=== PATIENT | female | born 1965 | race Caucasian/White ===

== ENCOUNTER 2017-11-05 14:15 | Emergency (ER) | payer OTHER ==
[2017-11-05 14:34] VITALS: BP 149/106
--- NOTE | 2017-11-05 14:40 | EDPHY ---
H & P Stated Complaint: Pt. states for 3-4weeks uncontrolled BP,yesterday and today blurry vision Time Seen by Provider: 11/05/17 14:27 HPI/ROS: CHIEF COMPLAINT: High blood pressure HISTORY OF PRESENT ILLNESS: The patient is a 52-year-old female with a history of high blood pressure who noticed today at work that her blood pressure was 170 /90. She presented to the urgent care where her blood pressure was 162/99. They sent her here where her blood pressure is 149/80. She is currently asymptomatic. She states that she takes lisinopril and hydrochlorothiazide and has for about 4 years. She has tolerated these medications well but they have not completely controlled her blood pressure which is typically around 130/80. Her Dr Sheron in [place] added metoprolol about month ago but it was giving her headaches. 2 days ago he discontinue the metoprolol and added hydralazine. This has been making her feel intermittently dizzy. No chest pain or shortness of breath. To me she denies any blurred vision or paresthesias or weakness. No syncope. No GI symptoms. She actually felt like it was making her blood pressure increase. She did not take her dose today and actually feels asymptomatic now. Severity: Mild Modifying factors: Symptoms improved as medication wore off REVIEW OF SYSTEMS: Constitutional: denies: chills, fever, recent illness, recent injury EENTM: denies: blurred vision, double vision, nose congestion Respiratory: denies: cough, shortness of breath Cardiac: denies: chest pain, irregular heart rate, lightheadedness, palpitations Gastrointestinal/Abdominal: denies: abdominal pain, diarrhea, nausea, vomiting, blood streaked stools Genitourinary: denies: dysuria, frequency, hematuria, pain Musculoskeletal: denies: joint pain, muscle pain Skin: denies: lesions, rash, jaundice, bruising Neurological: denies: headache, numbness, paresthesia, tingling, dizziness, weakness Hematologic/Lymphatic: denies: blood clots, easy bleeding, easy bruising Immunologic/allergic: denies: HIV/AIDS, transplant 10 systems reviewed and negative except as noted EXAM: GENERAL: Well-appearing, well-nourished and in no acute distress. HEAD: Atraumatic, normocephalic. EYES: Pupils equal round and reactive to light, extraocular movements intact, sclera anicteric, conjunctiva are normal. ENT: TMs normal, nares patent, oropharynx clear without exudates. Moist mucous membranes. NECK: Normal range of motion, supple without lymphadenopathy or JVD. LUNGS: Breath sounds clear to auscultation bilaterally and equal. No wheezes rales or rhonchi. HEART: Regular rate and rhythm without murmurs, rubs or gallops. ABDOMEN: Soft, nontender, normoactive bowel sounds. No guarding, no rebound. No masses appreciated. BACK: No CVA tenderness, no spinal tenderness, step-offs or deformities EXTREMITIES: Normal range of motion, no pitting or edema. No clubbing or cyanosis. NEUROLOGICAL: Cranial nerves II through XII grossly intact. Normal speech, normal gait. 5/5 strength, normal movement in all extremities, normal sensation , normal reflexes PSYCH: Normal mood, normal affect. SKIN: Warm, dry, normal turgor, no visible rashes or lesions. Source: Patient Exam Limitations: No limitations - Personal History LMP (Females 10-55): Post Menopausal - Medical/Surgical History Hx Asthma: No Hx Chronic Respiratory Disease: No Hx Diabetes: No Hx Cardiac Disease: No Hx Renal Disease: No Hx Cirrhosis: No Hx Alcoholism: No Hx HIV/AIDS: No Other PMH: Med hx-HTN - Family History Significant Family History: No pertinent family hx - Social History Smoking Status: Never smoked Alcohol Use: Sober Drug Use: None Constitutional: Initial Vital Signs Temperature (C) 37.1 C 11/05/17 14:23 Heart Rate 99 11/05/17 14:23 Respiratory Rate 16 11/05/17 14:23 Blood Pressure 149/106 H 11/05/17 14:23 O2 Sat (%) 94 11/05/17 14:23 O2 Delivery Mode Room Air Allergies/Adverse Reactions: No Known Allergies Allergy (Verified 11/05/17 14:22) Home Medications: Medication Instructions Recorded Hydralazine HCl 11/05/17 Hydrochlorothiazide 11/05/17 Lisinopril [Zestril 40 mg (*)] 11/05/17 Medical Decision Making ED Course/Re-evaluation: The patient is asymptomatic. She has high blood pressure. It is resolving spontaneously. She has had side effects with metoprolol and hydralazine. We discussed blood pressure management in the emergency department. I prefer not to make any new recommendations however we did discuss increasing her lisinopril and hydrochlorothiazide by half a tablet each day. She will keep a journal of her blood pressures and follow up with her regular doctor for further adjustment. I do not feel that she has hypertensive urgency or emergency. She does not have any neurologic deficits. She does not have any chest pain or shortness of breath. She does not have a headache. She understands and agrees with this plan. She feels reassured. Differential Diagnosis: Partial list of the Differential diagnosis considered include but were not limited to; hypertension, anxiety, medication effect and although unlikely based on the history and physical exam, I also considered CVA, hemorrhage, infection, acute coronary disease, PE, arrhythmia. I discussed these differential diagnoses and the plan with the patient as well as the usual and expected course. The patient understands that the diagnosis is provisional and that in medicine we are not always correct and that further workup is often warranted. Usual and customary warnings were given. All of the patient's questions were answered. The patient was instructed to return to the emergency department should the symptoms at all worsen or return, otherwise to followup with the physician as we discussed. Departure - Departure Disposition: Home, Routine, Self-Care Clinical Impression: Hypertension Qualifiers: Hypertension type: unspecified Qualified Code(s): I10 - Essential (primary) hypertension Condition: Fair Instructions: Lisinopril (By mouth), Hydrochlorothiazide (By mouth), Hypertension (ED) Additional Instructions: Discontinue the hydralazine. Increase her lisinopril dose to 1.5 tablets per day and your hydrochlorothiazide to 1.5 tablets per day. Keep a journal of your blood pressures and follow up with her doctor in a week or 2 to re- evaluate. Referrals: Sheron Barraza [Other] - As per Instructions
== END 2017-11-05 14:50 | disposition home or self-care (01) ==
LOC: CED 14:15
DX: I10 Essential (primary) hypertension (principal)